=== PATIENT | male | born 1980 | race Caucasian/White ===

== ENCOUNTER 2016-09-08 16:03 | Inpatient (IN) | payer BC ==
[~2016-09-08] VITALS: Ht 185.4 cm; Wt 124.1 kg
[~2016-09-08 16:03] MED LIST: ALPR.25 PO; CITA20TA4 PO; CLON1TAB PO; NAPR500 PO; SUMA50TA2 PO; TRAZ50TA12 PO
[2016-09-08 16:04] VITALS: BP 157/100; PULSE 67; RESP 20; TEMP 98.2; O2SAT 100
--- NOTE | 2016-09-08 17:49 | PD ---
HPI Chief Complaint: Neuro Symptoms/ Deficits Time Seen by Provider: 17:49 Travel History International Travel<30 days: No Contact w/Intl Traveler<30days: No Traveled to known affect area: No History of Present Illness HPI 35-year-old male with history of MS, diagnosed 10 years ago, followed by Dr. Pichardo presents to the emergency department for evaluation of MS exacerbation. Patient states he has been having left-sided weakness, facial droop, and drooling since yesterday. Patient states this is typical of his MS flare. He has also had a severe headache. He has had no other focal deficits or weakness. Was advised to come to the emergency department by his neurologist. He has no recent illnesses, fever, or chills. No nausea or vomiting. No other symptoms to report. PFSH Past Medical History Arthritis: No Asthma: No Autoimmune Disease: No Blood Disorders: No Anxiety: Yes (ANXIETY TIED INTO MS) Depression: No Heart Rhythm Problems: No Cancer: Yes (TESTICULAR/MONITORING NO CHEMO OR RADIATION) Cardiovascular Problems: No High Cholesterol: No Chemotherapy: No Chest Pain: No Congestive Heart Failure: No COPD: No Cerebrovascular Accident: No Diabetes: No Diminished Hearing: No Endocrine: No GERD: No Genitourinary: No Headaches: Yes Hiatal Hernia: No Immune Disorder: No Implanted Vascular Access Dvce: No Kidney Stones: No Musculoskeletal: Yes (MS) Neurologic: Yes (MS) Psychiatric: Yes Reproductive: Yes (ORCHIECTOMY) Respiratory: No (PNEUMONIA AND CROUP CHILD) Migraines: Yes Radiation Therapy: No Renal Failure: No Seizures: No Sickle Cell Disease: No Sleep Apnea: No Thyroid Disease: No Ulcer: No PNEUMOCCOCAL Vaccine (Year): 2 Past Surgical History Abdominal Surgery: No AICD: No Arteriovenous Shunt: No Cardiac Surgery: No Ear Surgery: No Endocrine Surgery: No Eye Surgery: No Genitourinary Surgery: No Gynecologic Surgery: No Insulin Pump: No Joint Replacement: No Oral Surgery: No Pacemaker: No Thoracic Surgery: No Other Surgery: No Social History Alcohol Use: No (PT DENIES) Tobacco Use: No (PT DENIES) Substance Use: No Allergies-Medications (Allergen,Severity, Reaction): Coded Allergies: Erythromycin (Verified Allergy, Severe, VOMIT, 09/08/16) Lortab (Verified Allergy, Severe, Nausea/Vomiting, 09/08/16) Penicillin (Verified Allergy, Severe, vomiting, 09/08/16) Amoxicillin (Verified Adverse Reaction, Severe, Nausea/Vomiting, 09/08/16) Reported Meds & Prescriptions Reported Meds & Active Scripts Active Xanax (Alprazolam) 0.25 Mg Tab 0.25 Mg PO Q8H Citalopram (Citalopram Hydrobromide) 20 Mg Tab 20 Mg PO DAILY Clonazepam 1 Mg Tab 1 Mg PO BID Sumatriptan (Sumatriptan Succinate) 50 Mg Tab 50 Mg PO DAILY PRN If a satisfactory response has not been obtained at 2 hours, a second dose may be administered Naprosyn (Naproxen) 500 Mg Tab 500 Mg PO Q12HR PRN Reported Trazodone (Trazodone HCl) 50 Mg Tab 50 Mg PO HS Review of Systems Except as stated in HPI: all other systems reviewed are Neg Physical Exam Narrative GENERAL: Well-nourished male patient, in no acute distress SKIN: Warm and dry. HEAD: Atraumatic. Normocephalic. Left-sided facial paralysis noted most with smile. EYES: Pupils equal and round. No scleral icterus. No injection or drainage. ENT: No nasal bleeding or discharge. Mucous membranes pink and moist. NECK: Trachea midline. No JVD. CARDIOVASCULAR: Regular rate and rhythm. No murmur appreciated. RESPIRATORY: No accessory muscle use. Clear to auscultation. Breath sounds equal bilaterally. GASTROINTESTINAL: Abdomen soft, non-tender, nondistended. Hepatic and splenic margins not palpable. MUSCULOSKELETAL: No obvious deformities. No clubbing. No cyanosis. No edema. NEUROLOGICAL: Awake and alert. Patient has 3 out of 5 left sided strength upper and lower extremity. 5 out of 5 right upper and lower extremity. PSYCHIATRIC: Appropriate mood and affect; insight and judgment normal. Data Data Last Documented VS Vital Signs Date Time Temp Pulse Resp B/P Pulse Ox O2 Delivery O2 Flow Rate FiO2 09/08/16 16:04 98.2 67 20 157/[address] Brain W/O Iv Contrast(Rout) (09/08/16 ) Complete Blood Count With Diff (09/08/16 17:53) Basic Metabolic Panel (Bmp) (09/08/16 17:53) Coag Profile (09/08/16 17:53) Labs Laboratory Tests Test 09/08/16 18:15 White Blood Count 8.0 TH/MM3 Red Blood Count 4.97 MIL/MM3 Hemoglobin 14.4 GM/DL Hematocrit 42.4 % Mean Corpuscular Volume 85.4 FL Mean Corpuscular Hemoglobin 28.9 PG Mean Corpuscular Hemoglobin 33.9 % Concent Red Cell Distribution Width 13.0 % Platelet Count 188 TH/MM3 Mean Platelet Volume 8.1 FL Neutrophils (%) (Auto) 62.3 % Lymphocytes (%) (Auto) 29.4 % Monocytes (%) (Auto) 6.4 % Eosinophils (%) (Auto) 1.3 % Basophils (%) (Auto) 0.6 % Neutrophils # (Auto) 5.0 TH/MM3 Lymphocytes # (Auto) 2.4 TH/MM3 Monocytes # (Auto) 0.5 TH/MM3 Eosinophils # (Auto) 0.1 TH/MM3 Basophils # (Auto) 0.0 TH/MM3 CBC Comment DIFF FINAL Differential Comment Prothrombin Time 10.9 SEC Prothromb Time International 1.0 RATIO Ratio Activated Partial 29.9 SEC Thromboplast Time Sodium Level 140 MEQ/L Potassium Level 3.5 MEQ/L Chloride Level 105 MEQ/L Carbon Dioxide Level 28.2 MEQ/L Anion Gap 7 MEQ/L Blood Urea Nitrogen 11 MG/DL Creatinine 0.91 MG/DL Estimat Glomerular Filtration 95 ML/MIN Rate Random Glucose 74 MG/DL Calcium Level 8.4 MG/DL [facility] Medical Decision Making Medical Screen Exam Complete: Yes Emergency Medical Condition: Yes Medical Record Reviewed: Yes Differential Diagnosis MS exacerbation versus electrolyte abnormality versus intracranial hemorrhage versus mass Narrative Course 35-year-old male presents to the emergency department for evaluation. Workup initiated in triage. Once a medical bed becomes available, patient will be transferred and care assumed by that provider. Condition: Stable VaishaliJuan CEvonnekev DUMONT Sep 08, 2016 17:49
[2016-09-08 18:49] LABS: BASOPHIL % 0.6 % (0.0-2.0); EOSINOPHIL # 0.1 TH/MM3 (0-0.4); EOSINOPHIL % 1.3 % (0.0-4.0); HEMATOCRIT 42.4 % (39.0-51.0); HEMO FLAGS DIFF FINAL; LYMPH % 29.4 % (9.0-44.0); LYMPHOCYTE # 2.4 TH/MM3 (1.0-4.8); MEAN CELL VOLUME 85.4 FL (80.0-100.0); MEAN CORPUSCULAR HEMOGLOBIN 28.9 PG (27.0-34.0); MEAN CORPUSCULAR HGB CONC 33.9 % (32.0-36.0); MONO % 6.4 % (0.0-8.0); NEUT % 62.3 % (16.0-70.0); PLATELET COUNT 188 TH/MM3 (150-450); RED BLOOD COUNT 4.97 MIL/MM3 (4.50-5.90)
[2016-09-08 18:59] LABS: APTT (PATIENT) 29.9 SEC (24.3-30.1); PROTHROMBIN TIME - PATIENT 10.9 SEC (9.8-11.6)
--- NOTE | 2016-09-08 19:05 | RADRPT ---
EXAM DATE/TIME: 09/08/2016 18:39 [facility] COMPARISON: MRI BRAIN W & W/O CONTRAST, May 06, 2016, 14:11. CT BRAIN W/O CONTRAST, May 05, 2016, 12:43 . INDICATIONS : Left weakness and slurred speech X 2 days. RADIATION DOSE: 43.75 CTDIvol (mGy) MEDICAL HISTORY : Multple sclerosis. SURGICAL HISTORY : None. ENCOUNTER: Initial ACUITY: 2 days PAIN SCALE: 0/10 LOCATION: chest TECHNIQUE: Multiple contiguous axial images were obtained of the head. Using automated exposure control and adj ustment of the mA and/or kV according to patient size, radiation dose was kept as low as reasonably a chievable to obtain optimal diagnostic quality images. FINDINGS: CEREBRUM: A small focal hypodensity is again identified in the right centrum semiovale along the roof of the la teral ventricle. Overall appearance the brain is stable. There are no new areas of hypodensity. There is no evidence of mass effect or edema. POSTERIOR FOSSA: The cerebellum and brainstem are intact. The 4th ventricle is midline. The cerebellopontine angle i s unremarkable. EXTRACRANIAL: The visualized portion of the orbits is intact. SKULL: The calvaria is intact. No evidence of skull fracture. CONCLUSION: Persistent stable hypodensity in the right centrum semiovale. No evidence of acute infarct, hemorrhage, mass or edema. Luke Andujar MD on September 08, 2016 at 19:00 Board Certified Radiologist. This report was verified electronically.
[2016-09-08 19:12] LABS: BICARBONATE 28.2 MEQ/L (21.0-32.0); POTASSIUM 3.5 MEQ/L (3.5-5.1)
[2016-09-08] MEDS ORDERED: TERI14TA PO (20:07)
[2016-09-08] MEDS ORDERED: methylPREDNISolone SO SUCC INJ 500 MG in DEXTROSE 5% IN WATER 100ML INJ 100 ML IV ONE ×2 (20:15)
[2016-09-08] MEDS ORDERED: LORazepam 2 MG/ML VIAL IV PUSH ONE (20:30)
--- NOTE | 2016-09-08 20:43 | PD ---
Physical Exam Date Seen by Provider: Sep 08, 2016 Time Seen by Provider: 20:40 Narrative 35-year-old male that presents to the ED for evaluation of her MS flare. Please refer to previous providers note. Patient was signed out to me by Evonne farias. Data Data Last Documented VS Vital Signs Date Time Temp Pulse Resp B/P Pulse Ox O2 Delivery O2 Flow Rate FiO2 09/08/16 16:04 98.2 67 20 157/[address] Brain W/O Iv Contrast(Rout) (09/08/16 ) Complete Blood Count With Diff (09/08/16 17:53) Basic Metabolic Panel (Bmp) (09/08/16 17:53) Coag Profile (09/08/16 17:53) Methylprednisolone So Succ Inj (Solumedr (09/08/16 20:15) Lorazepam Inj (Ativan Inj) (09/08/16 20:30) Admit Order (Ed Use Only) (09/08/16 20:40) Labs Laboratory Tests Test 09/08/16 18:15 White Blood Count 8.0 TH/MM3 Red Blood Count 4.97 MIL/MM3 Hemoglobin 14.4 GM/DL Hematocrit 42.4 % Mean Corpuscular Volume 85.4 FL Mean Corpuscular Hemoglobin 28.9 PG Mean Corpuscular Hemoglobin 33.9 % Concent Red Cell Distribution Width 13.0 % Platelet Count 188 TH/MM3 Mean Platelet Volume 8.1 FL Neutrophils (%) (Auto) 62.3 % Lymphocytes (%) (Auto) 29.4 % Monocytes (%) (Auto) 6.4 % Eosinophils (%) (Auto) 1.3 % Basophils (%) (Auto) 0.6 % Neutrophils # (Auto) 5.0 TH/MM3 Lymphocytes # (Auto) 2.4 TH/MM3 Monocytes # (Auto) 0.5 TH/MM3 Eosinophils # (Auto) 0.1 TH/MM3 Basophils # (Auto) 0.0 TH/MM3 CBC Comment DIFF FINAL Differential Comment Prothrombin Time 10.9 SEC Prothromb Time International 1.0 RATIO Ratio Activated Partial 29.9 SEC Thromboplast Time Sodium Level 140 MEQ/L Potassium Level 3.5 MEQ/L Chloride Level 105 MEQ/L Carbon Dioxide Level 28.2 MEQ/L Anion Gap 7 MEQ/L Blood Urea Nitrogen 11 MG/DL Creatinine 0.91 MG/DL Estimat Glomerular Filtration 95 ML/MIN Rate Random Glucose 74 MG/DL Calcium Level 8.4 MG/DL [facility] Medical Record Reviewed: Yes Supervised Visit with SIXTO: No Interpretation(s) Last Impressions Head CT 09/08/16 0000 Signed Impressions: Service Date/Time: Thursday, September 08, 2016 18:39 - CONCLUSION: Persistent stable hypodensity in the right centrum semiovale. No evidence of acute infarct, hemorrhage, mass or edema. Luke Andujar MD CBC & BMP Diagram 09/08/16 18:15 Differential Diagnosis MS flare versus anxiety versus stroke Narrative Course 35-year-old male that presents to the ED for evaluation of MS flare. Please refer to prior as providers note. I was asked to disposition patient pending labs and imaging reports. Labs and imaging were essentially unremarkable. Patient appears to have an MS flare from my examination. Case was discussed with Dr. Smith who is on-call for Dr. Covarrubias who agrees to admission to medicine, started on Solu-Medrol 500 mg IV twice a day, he wants an MRI of the head as well as CT of the cervical spine done by tomorrow. Case was discussed with Dr. Hamtpon who agrees to admission to the residence. This was discussed with the patient himself agrees to admission. Diagnosis Primary Impression: Multiple sclerosis Admitting Information Admitting Physician Requests: Admit Condition: Stable Cleve De Jesus Sep 08, 2016 20:42
[2016-09-08] MEDS ORDERED: SODIUM CHLORIDE 0.9% FLUSH 5 ML FLUSH FLUSH PRN (22:00)
[2016-09-08] MEDS ORDERED: NALOXONE HCL 0.4 MG/ML AMP IV PRN (22:00)
[2016-09-08] MEDS ORDERED: ONDANSETRON HCL 4 MG/2 ML VIAL IVP PRN (22:00)
[2016-09-08] MEDS ORDERED: ACETAMINOPHEN 325 MG TAB PO PRN (22:00)
--- NOTE | 2016-09-08 22:08 | HHI.HP ---
[facility] Service Family Medicine Primary Care Physician Niranjan Tavarez D, MD Admission Diagnosis MS flare Diagnoses: International Travel<30 Days: No Contact w/Intl Traveler<30days: No Known Affected Area: No History of Present Illness 35 year old male with PMH of MS diagnosed in 2006 presents to ED for evaluation of MS exacerbation. He states he has been having left-sided facial droop, drooling, and left-sided arm and leg weakness. He states this is a typical flare -up of MS for him. He has had these same symptoms in the past and recently admitted here at [place] in 05/2016. He states he has had a headache that is about a 5/10 for the past week and a half, not in any particular area, not associated with photophobia or phonophobia. Denies N/V. His left-sided weakness started to worsen this past Sunday requiring him to hold onto the brooke due to an unsteady gait. He states he is still able to bear weight on his left leg. His strength has slightly improved since several days ago. His speech is slightly slurred. He denies any other focal neurological deficit. Denies dysphagia. Denies any recent illnesses, fevers, chest pain, shortness of breath , no visual symptoms. He follows with Dr. Newby. Review of Systems Constitutional: DENIES: Fever, Dizziness, Change in appetite Eyes: DENIES: Blurred vision, Diplopia, Double Vision Ears, nose, mouth, throat: DENIES: Throat pain, Hoarseness Respiratory: DENIES: Cough, Sputum production, Shortness of breath Cardiovascular: DENIES: Chest pain, Palpitations, Lower Extremity Edema Gastrointestinal: COMPLAINS OF: Diarrhea (States having diarrhea has been normal after starting on Aubagio), DENIES: Abdominal pain, Black stools, Bloody stools, Constipation, Nausea, Vomiting Genitourinary: DENIES: Hematuria, Dysuria Integumentary: DENIES: Rash Neurologic: COMPLAINS OF: Abnormal gait, Headache, Localized weakness, Speech Problems Past Family Social History Past Medical History MS 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 Past Surgical History Orchiectomy for testicular cancer Reported Medications Reported Meds & Active Scripts Active Reported Aubagio (Teriflunomide) 14 Mg Tab 14 Mg PO DAILY Allergies: Coded Allergies: Erythromycin (Verified Allergy, Severe, VOMIT, 09/08/16) Lortab (Verified Allergy, Severe, Nausea/Vomiting, 09/08/16) Penicillin (Verified Allergy, Severe, vomiting, 09/08/16) Amoxicillin (Verified Adverse Reaction, Severe, Nausea/Vomiting, 09/08/16) Family History Father: ANGELIKA, age 56 Mother: healthy, age 63 Social History Lives in [place] with roommate Works at [employer] 1[employer]D x 16 years, quit x 2 years THC use No alcohol use Physical Exam Vital Signs Vital Signs Date Time Temp Pulse Resp B/P Pulse Ox O2 Delivery O2 Flow Rate FiO2 09/08/16 16:04 98.2 67 20 157/100 100 Room Air Physical Exam GENERAL: NAD, resting comfortably in bed NEURO: AOx3. Speech slightly slurred. dam operator II-XII intact. No facial droop. Strength is 5/5 throughout. Sensation intact throughout. Reflexes 2+. Finger-to- nose testing normal. Gait not tested. SKIN: Warm and dry. No rashes or erythema. HEAD: Normocephalic. Atraumatic. EYES: PERRL. EOMI. No scleral icterus. No injection or drainage. ENT: No nasal drainage. Moist mucous membranes. No oral ulcers or lesions. NECK: Supple, trachea midline. No JVD or lymphadenopathy. CARDIOVASCULAR: Regular rate and rhythm without murmurs, rubs, or gallops. Peripheral pulses 2+. Capillary refill < 2 seconds. RESPIRATORY: Breath sounds clear to auscultation and equal bilaterally, without wheezes, rales, or rhonchi. No accessory muscle use. GASTROINTESTINAL: Abdomen soft, nontender, nondistended, normal BS. No organomegaly or masses. No rebound tenderness. No guarding. MUSCULOSKELETAL: No edema, cyanosis, or clubbing. Normal range of motion. 5/5 strength throughout. BACK: Nontender without obvious deformity. Laboratory Laboratory Tests Test 09/08/16 18:15 White Blood Count 8.0 Red Blood Count 4.97 Hemoglobin 14.4 Hematocrit 42.4 Mean Corpuscular Volume 85.4 Mean Corpuscular Hemoglobin 28.9 Mean Corpuscular Hemoglobin 33.9 Concent Red Cell Distribution Width 13.0 Platelet Count 188 Mean Platelet Volume 8.1 Neutrophils (%) (Auto) 62.3 Lymphocytes (%) (Auto) 29.4 Monocytes (%) (Auto) 6.4 Eosinophils (%) (Auto) 1.3 Basophils (%) (Auto) 0.6 Neutrophils # (Auto) 5.0 Lymphocytes # (Auto) 2.4 Monocytes # (Auto) 0.5 Eosinophils # (Auto) 0.1 Basophils # (Auto) 0.0 CBC Comment DIFF FINAL Differential Comment Prothrombin Time 10.9 Prothromb Time International 1.0 Ratio Activated Partial 29.9 Thromboplast Time Sodium Level 140 Potassium Level 3.5 Chloride Level 105 Carbon Dioxide Level 28.2 Anion Gap 7 Blood Urea Nitrogen 11 Creatinine 0.91 Estimat Glomerular Filtration 95 Rate Random Glucose 74 Calcium Level 8.4 Result Diagram: 09/08/16181409/08/16 181 Imaging Last [address] 09/08/16 0000 Signed Impressions: Service Date/Time: Thursday, September 08, 2016 18:39 - CONCLUSION: Persistent stable hypodensity in the right centrum semiovale. No evidence of acute infarct, hemorrhage, mass or edema. Luke Andujar MD Cervical Spine CT 09/08/16 0000 Signed Impressions: Service Date/Time: Thursday, September 08, 2016 22:10 - CONCLUSION: Normal examination. Luke Andujar MD Septic Shock Reassessment Heart: Regular rate and rhythm Lungs: Clear Skin: Warm, Dry Peripheral Pulses: Bounding Right Radial Bounding Left Radial Bounding Right Dorsalis Pedis Bounding Left Dorsalis Pedis Bounding Right Posterior Tibial Bounding Left Posterior Tibial Capillary Refill: <2 seconds Assessment and Plan Assessment and Plan 35 year old male with PMH of MS diagnosed in 2006 presented to ED due to report of left-sided facial droop that seems to have resolved, drooling, left-sided arm and leg weakness. He will be admitted and managed for the following: Code Status Full code Discussed Condition With Dr. Nichols Problem List: (1) Multiple sclerosis Status: Acute Plan: - Given history of MS his symptoms are likely due to a relapse of MS - Head CT shows a persistent stable hypodensity in the right centrum semiovale; no evidence for acute infarct, hemorrhage, mass, or edema - C-spine CT normal - MRI brain with and without contrast ordered - Given 500 mg Solumedrol IV in ED - Continue Solumedrol 500 mg IV BID for a total of three days - Protonix 40 mg po daily for GI prophylaxis - Continue Aubagio - Neuro checks q4h - PT/OT/ST - OOB with assistance - Consult neurology, appreciate recommendations (2) Headache Status: Acute Plan: He does have a history of headaches which may be trigeminal neuralgia versus migraine. No photophobia or phonophobia, no significant eye pain - Will give Sumatriptan as he states he has had a good response with this in the past (3) Nutrition, metabolism, and development symptoms Status: Acute Plan: No fluids Electrolytes WNLs Regular diet Trazodone prn insomnia (4) DVT prophylaxis Status: Acute Plan: Lovenox 40 mg subq daily Physician Certification 2 Midnight Certification Type: Admission for Inpatient Services Order for Inpatient Services The services are ordered in accordance with Medicare regulations or non- Medicare payer requirements, as applicable. In the case of services not specified as inpatient-only, they are appropriately provided as inpatient services in accordance with the 2-midnight benchmark. Estimated LOS (days): 2 days is the estimated time the patient will need to remain in the hospital, assuming treatment plan goals are met and no additional complications. Post-Hospital Plan: Home Rashawn Chacon MD R1 Sep 08, 2016 22:08
--- NOTE | 2016-09-08 22:29 | RADRPT ---
EXAM DATE/TIME: 09/08/2016 22:10 [facility] COMPARISON: No previous studies available for comparison. INDICATIONS : Left sided weakness. RADIATION DOSE: 33.69 CTDIvol (mGy) MEDICAL HISTORY : Multple sclerosis. SURGICAL HISTORY : None. ENCOUNTER: Initial ACUITY: 2 days PAIN SCALE: 0/10 LOCATION: neck TECHNIQUE: Volumetric scanning of the cervical spine was performed. Multiplanar reconstructions in the sagittal, coronal and oblique axial planes were performed. Using automated exposure control and adjustment o f the mA and/or kV according to patient size, radiation dose was kept as low as reasonably achievable to obtain optimal diagnostic quality images. FINDINGS: VERTEBRAE: Normal vertebral body height. ALIGNMENT: No evidence of subluxation. C2-C3: The bony spinal canal is normal in size. No evidence of disc bulge or herniation. The neural forami na are bilaterally patent. C3-C4: The bony spinal canal is normal in size. No evidence of disc bulge or herniation. The neural forami na are bilaterally patent. C4-C5: The bony spinal canal is normal in size. No evidence of disc bulge or herniation. The neural forami na are bilaterally patent. C5-C6: The bony spinal canal is normal in size. No evidence of disc bulge or herniation. The neural forami na are bilaterally patent. C6-C7: The bony spinal canal is normal in size. No evidence of disc bulge or herniation. The neural forami na are bilaterally patent. C7-T1: The bony spinal canal is normal in size. No evidence of disc bulge or herniation. The neural forami na are bilaterally patent. CONCLUSION: Normal examination. Luke Andujar MD on September 08, 2016 at 22:25 Board Certified Radiologist. This report was verified electronically.
[2016-09-08 22:40] VITALS: BP 139/88; PULSE 61; RESP 18; O2SAT 98
[2016-09-08] MEDS: SODIUM CHLORIDE 0.9% FLUSH 5 ML FLUSH FLUSH SCH (22:41)
[2016-09-08] MEDS: ENOXAPARIN SODIUM 40 MG/0.4 ML SYRINGE SQ SCH (22:54)
[2016-09-08] MEDS: PANTOPRAZOLE SOD 40 MG DELAYED RELEASE TAB PO SCH (23:27)
[2016-09-08 23:52] VITALS: BP 151/87; PULSE 71; RESP 20; TEMP 96.2; O2SAT 97
[2016-09-09] MEDS: SUMAtriptan SUCCINATE 50 MG TAB PO PRN ×3 (00:05→22:29)
[2016-09-09] MEDS ORDERED: ENALAPRILAT 1.25 MG/ML VIAL IV PRN (01:30)
[2016-09-09 04:00] VITALS: BP 130/73; PULSE 68; RESP 18; TEMP 96.5; O2SAT 98
[2016-09-09 07:21] LABS: BASOPHIL % 0.2 % (0.0-2.0); EOSINOPHIL % 0.1 % (0.0-4.0); HEMO FLAGS DIFF FINAL; LYMPH % 15.7 % (9.0-44.0); LYMPHOCYTE # 0.8 TH/MM3 (1.0-4.8); MEAN CELL VOLUME 84.5 FL (80.0-100.0); MEAN CORPUSCULAR HEMOGLOBIN 29.1 PG (27.0-34.0); MEAN CORPUSCULAR HGB CONC 34.4 % (32.0-36.0); MONO % 1.4 % (0.0-8.0); NEUT % 82.6 % (16.0-70.0); PLATELET COUNT 186 TH/MM3 (150-450); RED BLOOD COUNT 5.21 MIL/MM3 (4.50-5.90); RED CELL DISTRIBUTION WIDTH 12.8 % (11.6-17.2); WHITE BLOOD COUNT 4.8 TH/MM3 (4.0-11.0)
[2016-09-09 07:34] LABS: BICARBONATE 25.9 MEQ/L (21.0-32.0)
--- NOTE | 2016-09-09 07:34 | HHI.FPPN ---
Subjective Remarks Patient seen and examined this morning. AFVSS. No acute events overnight. Reports continued weakness and decreased sensation in LLE and LUE, worse in upper extremity. Also states he still has mild drooping of left mouth. No significant improvement after first dose of IV steroids. Right-sided headache improved with Imitrex. Denies blurry or double vision, chest pain, or shortness of breath. Tolerating PO. Ambulating to the restroom without issues. (Nikky Pleitez MD) Objective Vitals Vital Signs Date Time Temp Pulse Resp B/P Pulse Ox O2 Delivery O2 Flow Rate FiO2 09/09/16 04:00 96.5 68 18 130/73 98 09/09/16 00:10 Room Air 09/08/16 23:52 96.2 71 20 151/87 97 09/08/16 22:40 61 18 139/88 98 Room Air 09/08/16 16:04 98.2 67 20 157/100 100 Room Air I/O 09/08/16 09/08/16 09/08/16 09/09/16 09/09/16 09/09/16 07:00 15:00 23:00 07:00 15:00 23:00 Intake Total 240 ml Balance 240 ml Intake Oral 240 ml # Voids 1 # Bowel Movements 0 (Nikky Pleitez MD) Result Diagram: 09/09/16 0625 09/08/[address] 09/08/16 0000 Signed Impressions: Service Date/Time: Thursday, September 08, 2016 18:39 - CONCLUSION: Persistent stable hypodensity in the right centrum semiovale. No evidence of acute infarct, hemorrhage, mass or edema. Luke Andujar MD Cervical Spine CT 09/08/16 0000 Signed Impressions: Service Date/Time: Thursday, September 08, 2016 22:10 - CONCLUSION: Normal examination. Luke Andujar MD Objective Remarks GENERAL: WN, WD male sitting up comfortably in bed, pleasant and cooperative, in NAD. SKIN: Warm and dry. HEENT: PERRLA. EOMI. MMM. HEART: RRR no m/r/g. LUNGS: CTAB without wheezes or crackles. ABDOMEN: Soft, NT, ND. EXTREMITIES: No LE edema. NEURO: Awake and alert. Normal speech. Very slight left mouth droop otherwise CN II-XII intact. UE and LE strength 5/5 but LLE/LUE less in comparison to the right side. Diminished sensation over LLE and LUE. Sensation of face intact. PSYCH: Appropriate mood and affect. (Nikky Pleitez MD) A/P Assessment and Plan 35 year old male with multiple sclerosis is admitted for MS flare. Patient follows with Dr. Newby who has been consulted. The plan is for three days of IV steroids. PT/OT consulted. Discharge Planning Anticipate discharge after three full days of IV steroids BID. (Nikky Pleitez MD) Attending Attestation Patient seen and examined. Case reviewed and discussed with the resident team. Agree with plan of care as discussed with me and documented in the resident note. he requested 2 mg of ativan prior to his iv steroids as they are very high dose and give him anxiety. He had 2 mg earlier and is not sedated as he is more than 6 feet tall and can tolerate this dose. stopped other ativan doses as he wishes to focus on the steroids is stable otherwise. (Karly Geller MD) Problem List: (1) Multiple sclerosis Status: Acute Plan: Patient admitted for acute flare of MS. Head CT shows a persistent stable hypodensity in the right centrum semiovale and CT of C-spine normal. - Neuro consulted; appreciate recommendations - Solumedrol 500 mg IV BID for a total of three days (first dose given evening of 3. Course to be complete on 3/6 after AM dose) - Continue home Aubagio (patient has it with him) - Neuro checks - PT/OT/ST (2) Headache Status: Chronic Plan: Patient with history of headaches and success with Imitrex. - CT head with no acute process - Imitrex and Tylenol PRN (3) Anxiety Status: Acute Plan: On review of EMR, patient's PCP had changed home Xanax to Klonopin 1 mg BID PRN which can be continued. - Continue home Trazodone (4) Nutrition, metabolism, and development symptoms Status: Acute Plan: - Fluids: Tolerating PO - Electrolytes: WNL - Nutrition: Regular diet - DVT prophylaxis: Lovenox 40 mg SQ daily - GI prophylaxis: Protonix 40 mg daily since receiving high-dose steroids dw Dr. Geller (Nikky Pleitez MD) Nikky Pleitez MD Sep 09, 2016 07:33 Karly Geller MD Sep 09, 2016 17:18
[2016-09-09 07:44] VITALS: BP 139/92; PULSE 73; RESP 17; TEMP 96.8; O2SAT 96
[2016-09-09] MEDS ORDERED: clonazePAM 1 MG TAB PO PRN (08:45)
[2016-09-09] MEDS ORDERED: TERIFLUNOMIDE 14 MG PO SCH (09:00)
[2016-09-09] MEDS: PANTOPRAZOLE SOD 40 MG DELAYED RELEASE TAB PO SCH (09:00)
[2016-09-09] MEDS: methylPREDNISolone SO SUCC INJ 500 MG in DEXTROSE 5% IN WATER 100ML INJ 100 ML IV SCH ×4 (09:48→22:49)
[2016-09-09] MEDS ORDERED: GADODIAMIDE PF 287 MG/ML 20 ML VIAL (for RAD MRI) IV ONE (11:00)
--- NOTE | 2016-09-09 11:17 | RADRPT ---
EXAM DATE/TIME: 09/09/2016 10:15 [place] COMPARISON: CT BRAIN W/O CONTRAST, September 08, 2016, 18:39. MRI BRAIN W & W/O CONTRAST, May 06, 2016, 14:11. INDICATIONS : Left side weakness, history of MS. CONTRAST: 20 cc Omniscan (gadodiamide) IV MEDICAL HISTORY : Multiple sclerosis. SURGICAL HISTORY : None applicable. ENCOUNTER: Initial ACUITY: 1 day PAIN SCORE: 0/10 LOCATION: cranial TECHNIQUE: Multiplanar, multisequence MRI of the brain was performed both prior to and following the administrat ion of paramagnetic contrast. FINDINGS: CEREBRUM: The ventricles are normal in size. No evidence of midline shift, mass lesion, hemorrhage or acute in farction. No extraaxial fluid collections are seen. The pituitary gland and suprasellar cistern are normal in configuration. WHITE MATTER: There are stable periventricular areas of increased flair and T2 signal. POSTERIOR FOSSA: The cerebellum and brainstem demonstrate no acute finding. The 4th ventricle is midline. The cerebel lopontine angle is unremarkable. The cerebellar tonsils are normal in position. DIFFUSION IMAGING: No focal areas of restricted diffusion are seen. No evidence of acute infarction. EXTRACRANIAL: The visualized portions of the orbits and paranasal sinuses are unremarkable. POST-CONTRAST: No abnormal areas of parenchymal or dural enhancement. No evidence of blood-brain barrier breakdown. CONCLUSION: Stable brain MRI. There are stable periventricular and subcortical areas of white matter signal evangelista e which may be related to the patient's known multiple sclerosis. No acute finding is identified. Emigdio Pretty MD on September 09, 2016 at 11:12 Board Certified Radiologist. This report was verified electronically.
[2016-09-09 11:45] VITALS: BP 156/77; PULSE 71; RESP 17; TEMP 97.4; O2SAT 98
[2016-09-09] MEDS ORDERED: LORazepam 1 MG TAB PO PRN (12:45)
[2016-09-09] MEDS ORDERED: LORazepam 2 MG/ML VIAL IV PUSH ONE (15:30)
[2016-09-09 15:45] VITALS: BP 160/89; PULSE 82; RESP 17; TEMP 97.5; O2SAT 97
[2016-09-09] MEDS ORDERED: MAGNESIUM HYDROXIDE SUSP 30 ML CUP PO PRN (17:30)
[2016-09-09] MEDS: SODIUM CHLORIDE 0.9% FLUSH 5 ML FLUSH FLUSH SCH ×2 (18:22→22:31)
--- NOTE | 2016-09-09 18:52 | MB ---
cc: NAEEM W[place] DATE OF CONSULTATION 09/09/16 REASON FOR CONSULTATION Multiple sclerosis HISTORY OF PRESENT ILLNESS Mr. Douglas is a very nice 35-year-old male who has a history of multiple sclerosis since the year 1999. He is currently on . He presents now with several day history of worsening left-sided weakness due to MS. PAST MEDICAL HISTORY History of MS testicular cancer seminoma, orchiectomy for that MEDICATIONS At home 1. ___14 mg daily. ALLERGIES PENICILLIN AMOXICILLIN ERYTHROMYCIN LORTAB. NEUROLOGIC EXAMINATION Blood pressure is 160/89, pulse is 82, respirations 17, temperature 97.5 degrees. Higher cortical functions are normal. Cranial nerves intact. Motor exam - he has moderate weakness left arm and left leg rated at 4/5 with 5/5 strength in the right. IMAGING STUDIES MRI of the brain shows multiple sclerosis plaques which appear to be stable. CT of cervical spine no fracture. LABORATORY DATA White count 8000, hemoglobin 14.4, hematocrit of 42%. IMPRESSION Multiple sclerosis exacerbation. PLAN IV Solu-Medrol 500 mg IV b.i.d. for a total of 3-5 days depending on his responsiveness. MD MARIMAR Santoyo/ /6:25 PM /6:40 PM
[2016-09-09 20:14] VITALS: BP 140/83; PULSE 94; RESP 21; TEMP 97.9; O2SAT 98
[2016-09-09] MEDS ORDERED: LORazepam 2 MG/ML VIAL IV PUSH SCH (21:00)
[2016-09-09] MEDS: ENOXAPARIN SODIUM 40 MG/0.4 ML SYRINGE SQ SCH (22:31)
[2016-09-09] MEDS: LORazepam 2 MG/ML VIAL IV PUSH SCH (22:31)
[2016-09-10 00:11] VITALS: BP 134/84; PULSE 86; RESP 22; TEMP 96.9; O2SAT 97
[2016-09-10 08:22] VITALS: BP 136/85; PULSE 91; RESP 18; TEMP 96.1; O2SAT 98
[2016-09-10] MEDS: PANTOPRAZOLE SOD 40 MG DELAYED RELEASE TAB PO SCH (09:00)
[2016-09-10] MEDS: SODIUM CHLORIDE 0.9% FLUSH 5 ML FLUSH FLUSH SCH ×2 (10:09→21:12)
[2016-09-10] MEDS: methylPREDNISolone SO SUCC INJ 500 MG in DEXTROSE 5% IN WATER 100ML INJ 100 ML IV SCH ×4 (10:10→21:11)
[2016-09-10] MEDS: LORazepam 2 MG/ML VIAL IV PUSH SCH ×2 (10:10→21:11)
[2016-09-10] MEDS: SUMAtriptan SUCCINATE 50 MG TAB PO PRN (10:15)
--- NOTE | 2016-09-10 10:20 | HHI.FPPN ---
Subjective Remarks Mr Douglas is doing a little better today with his numbness on the left for his foot and hand. He cannot feel the floor with his left foot when he walks and has some chronic problems with balance as well. He does note that after his third dose of steroids, he is improving. It is discouraging for him to be on a new and good medicine for 3 months and yet have an exacerbation but we discussed that the meds were not perfect at preventing everything but did decrease frequency and severity of problems in general. I also discussed that there were so many new and ever improving meds so that hopefully he could find even better meds in the future to prevent problems. He complains of headache which usually accompanies his MS flares. We discussed many different meds for headaches and none have worked very well. He has a reported allergy to lortab with nausea and vomiting so will try toradol as that helped him per his record in the past with headaches. Objective Vitals Vital Signs Date Time Temp Pulse Resp B/P Pulse Ox O2 Delivery O2 Flow Rate FiO2 09/10/16 00:11 96.9 86 22 134/84 97 09/09/16 20:14 97.9 94 21 140/83 98 09/09/16 15:45 97.5 82 17 160/89 97 09/09/16 11:45 97.4 71 17 156/77 98 I/O 09/09/16 09/09/16 09/09/16 09/10/16 09/10/16 09/10/16 07:00 15:00 23:00 07:00 15:00 23:00 Intake Total 240 ml 960 ml 720 ml 480 ml Balance 240 ml 960 ml 720 ml 480 ml Intake Oral 240 ml 960 ml 720 ml 480 ml # Voids 1 3 3 2 # Bowel Movements 0 1 0 0 Result Diagram: 09/09/1625 09/09/16624 Objective Remarks GENERAL: WN, WD male sitting up comfortably in bed, pleasant and cooperative, in NAD. SKIN: Warm and dry. HEENT: PERRLA. EOMI. MMM. HEART: RRR no m/r/g. LUNGS: CTAB without wheezes or crackles. ABDOMEN: Soft, NT, ND. EXTREMITIES: No LE edema. NEURO: Awake and alert. Normal speech. Very slight left mouth droop otherwise CN II-XII intact. UE and LE strength 5/5 but LLE/LUE less in comparison to the right side. Diminished sensation over LLE and LUE. Sensation of face intact. PSYCH: Appropriate mood and affect. Urinary Catheter: No Vascular Central Line Catheter: No A/P Assessment and Plan 35 year old male with multiple sclerosis is admitted for MS flare. Patient follows with Dr. Newby who has been consulted. The plan is for three days of IV steroids. PT/OT consulted. Discharge Planning Anticipate discharge after three full days of IV steroids BID, maybe tomorrow. Problem List: (1) Multiple sclerosis Status: Acute Plan: Patient admitted for acute flare of MS. Head CT shows a persistent stable hypodensity in the right centrum semiovale and CT of C-spine normal. - Neuro consulted; appreciate recommendations - Solumedrol 500 mg IV BID for a total of three days (first dose given evening of 09/08. Course to be complete on 3/6 after AM dose) - Continue home Aubagio (patient has it with him) - Neuro checks - PT/OT/ST -he has ativan 2 mg iv prior to the steroids as he reports these high doses make him very anxious and it's working well (2) Headache Status: Chronic Plan: Patient with history of headaches and success with Imitrex. - CT head with no acute process - Imitrex and Tylenol PRN added torodal to see if that will help as it did in the past. his renal fxn is good (3) Anxiety Status: Acute Plan: On review of EMR, patient's PCP had changed home Xanax to Klonopin 1 mg BID PRN which can be continued. - Continue home Trazodone -added 2 mg ativan iv prior to steroids as high dose steroids are known to cause all kinds of problems mentally, psychologically and physically but they are needed for his MS right now (4) Nutrition, metabolism, and development symptoms Status: Acute Plan: - Fluids: Tolerating PO - Electrolytes: WNL - Nutrition: Regular diet - DVT prophylaxis: Lovenox 40 mg SQ daily - GI prophylaxis: Protonix 40 mg daily since receiving high-dose steroids Karly Geller MD Sep 10, 2016 10:20
[2016-09-10] MEDS ORDERED: KETOROLAC TROMETHAMINE 10 MG TAB PO PRN (10:30)
[2016-09-10 11:20] VITALS: BP 161/80; PULSE 87; RESP 18; TEMP 97.1; O2SAT 99
--- NOTE | 2016-09-10 11:33 | HHI.PR ---
Review/Management Diagnosis Multiple sclerosis exacerbation Plan continue solumedrol total of 3-5 days depending on response. Diagnosis/Plan: Subjective Subjective Comments No acute events reported Day 2 solumedrol and tolerating it well He feels left sided strength is improving but is still weak Active Medications Current Medications Medications (Trade) Dose Ordered Sig/Memo Route Start Time Stop Time Status Last Admin (NS Flush) 2 ml UNSCH PRN FLUSH 09/08/16 22:00 (NS Flush) 2 ml BID FLUSH 09/08/16 22:00 09/10/16 10:09 (Tylenol) 650 mg Q4H PRN PO 09/08/16 22:00 (Zofran Inj) 4 mg Q6H PRN IVP 09/08/16 22:00 Naloxone HCl 0.4 mg 0.4 mg UNSCH PRN IV 09/08/16 22:00 (SoluMEDROL INJ/ D5W 100 ml Inj) 100 ml @ 200 mls/hr Q12HR IV 09/09/16 09:00 09/11/16 09:00 09/10/16 10:10 (Desyrel) 100 mg HS PRN PO 09/08/16 22:15 (Imitrex) 50 mg DAILY PRN PO 09/08/16 22:15 09/10/16 10:15 (Protonix) 40 mg DAILY PO 09/08/16 23:15 09/08/16 23:27 Patient Own Medication PT OWN MED: Teriflunomide (Aubagio)... DAILY PO 09/09/16 09:00 Hold (Vasotec Inj) 1.25 mg Q6H PRN IV 09/09/16 01:30 (Ativan Inj) 2 mg Q12HR IV PUSH 09/09/16 21:00 09/10/16 10:10 (Milk Of Magnesia Liq) 30 ml DAILY PRN PO 09/09/16 17:30 (Toradol) 10 mg ONCE PRN PO 09/10/16 10:30 09/10/16 23:00 (KlonoPIN) 1 mg Q12HR PO 09/10/16 11:15 Allergies Allergies Coded Allergies Erythromycin (Verified Allergy, Severe, VOMIT, 09/08/16) Lortab (Verified Allergy, Severe, Nausea/Vomiting, 09/08/16) Penicillin (Verified Allergy, Severe, vomiting, 09/08/16) Amoxicillin (Verified Adverse Reaction, Severe, Nausea/Vomiting, 09/08/16) Review of Systems All other ROS: ROS reviewed as documented in chart Exam I&O / VS 09/09/16 09/09/16 09/10/16 15:00 23:00 07:00 Intake Total 960 ml 720 ml 480 ml Balance 960 ml 720 ml 480 ml Intake Oral 960 ml 720 ml 480 ml # Voids 3 3 2 # Bowel Movements 1 0 0 Vital Signs Date Time Temp Pulse Resp B/P Pulse Ox O2 Delivery O2 Flow Rate FiO2 09/10/16 08:22 96.1 91 18 136/85 98 09/10/16 00:11 96.9 86 22 134/84 97 09/09/16 20:14 97.9 94 21 140/83 98 09/09/16 15:45 97.5 82 17 160/89 97 09/09/16 11:45 97.4 71 17 156/77 98 General: Alert and Oriented, No acute distress Eye: EOMI Respiratory: Non-labored respirations Cardiology: Normal rate Neurologic: Alert, Oriented Psychiatric: Cooperative, Appropriate mood & affect, Normal judgement, Non- suicidal Exam Comments alert, oriented, speech is normal CN 2-12 normal MOTOR--/5 LUE and SEANE 11/10 Jarett Bailey PhD Sep 10, 2016 11:33
[2016-09-10] MEDS: clonazePAM 1 MG TAB PO SCH ×2 (11:41→21:11)
[2016-09-10 16:15] VITALS: BP 139/77; PULSE 95; RESP 18; TEMP 97.8; O2SAT 96
[2016-09-10 20:45] VITALS: BP 146/75; PULSE 95; RESP 16; TEMP 97.2; O2SAT 98
[2016-09-10] MEDS ORDERED: KETOROLAC TROMETHAMINE 60 MG/2 ML (IM) VIAL IM ONE (22:30)
[2016-09-10] MEDS: traZODone HCL 100 MG TAB PO PRN (22:41)
[2016-09-11] VITALS: BP 126/88; PULSE 84; RESP 16; TEMP 96.1; O2SAT 94
[2016-09-11 07:35] VITALS: BP 133/67; PULSE 87; RESP 18; TEMP 96.3; O2SAT 97
--- NOTE | 2016-09-11 08:48 | HHI.FPPN ---
Subjective Remarks Pt seen and examined this morning. AFVSS. No acute events overnight. Reports symptoms of numbness/tingling and weakness in the LLE and LLU are about the same as yesterday. Denies slurred speech, blurry vision, or facial drooping. Continues to endorse a 5/10 right-sided, throbbing headache. He states the Toradol yesterday evening helped and the Imitrex doesn't seem to be working as well any more. He is ambulating without issues. Would like to see how another day on the IV steroids would make him feel. (Nikky Pleitez MD) Objective Vitals Vital Signs Date Time Temp Pulse Resp B/P Pulse Ox O2 Delivery O2 Flow Rate FiO2 09/11/16 00:00 96.1 84 16 126/88 94 09/10/16 20:45 97.2 95 16 146/75 98 09/10/16 16:15 97.8 95 18 139/77 96 09/10/16 11:20 97.1 87 18 161/80 99 I/O 09/10/16 09/10/16 09/10/16 09/11/16 09/11/16 09/11/16 07:00 15:00 23:00 07:00 15:00 23:00 Intake Total 480 ml 960 ml 480 ml 480 ml Balance 480 ml 960 ml 480 ml 480 ml Intake Oral 480 ml 960 ml 480 ml 480 ml # Voids 2 4 2 3 # Bowel Movements 0 2 0 0 (Nikky Pleitez MD) Result Diagram: 09/09/1625 09/09/16 0625 Objective Remarks GENERAL: WN, WD male sitting up comfortably in bed, pleasant and cooperative, in NAD. SKIN: Warm and dry. HEENT: PERRLA. EOMI. MMM. HEART: RRR no m/r/g. LUNGS: CTAB without wheezes or crackles. ABDOMEN: Soft, NT, ND. EXTREMITIES: No LE edema. NEURO: Awake and alert. Normal speech. CN II-XII intact. RUE and RLE strength 5/ 5. LLE/LUE strength 4+/5. Diminished sensation over LLE and LUE. Sensation of face intact. PSYCH: Appropriate mood and affect. (Nikky Pleitez MD) A/P Assessment and Plan 35 year old male with multiple sclerosis is admitted for MS flare. Patient follows with Dr. Newby who has been consulted. The plan is for 3-5 days of IV steroids pending clinical response; today he has completed three day but isn't satisfied with the outcome so we will see how he does with another day. PT/OT consulted. Discharge Planning Anticipate D/C in 1-2 days pending clinical response of steroids. (Nikky Pleitez MD) Attending Attestation Patient seen and examined. Case reviewed and discussed with the resident team. Agree with plan of care as discussed with me and documented in the resident note. (Karly Geller MD) Problem List: (1) Multiple sclerosis Status: Acute Plan: Patient admitted for acute flare of MS. Head CT shows a persistent stable hypodensity in the right centrum semiovale and CT of C-spine normal. MRI with stable periventricular and subcortical areas of white matter signal change and no acute findings. Neuro consulted; recommending IV steroids 3-5 days depending on response. As of this morning, he will have had three full days of Solumedrol 500 mg IV BID without significant improvement in his symptoms therefore we will see how he does another day. - Ativan 2 mg IV prior to the steroids as he reports these high doses make him very anxious and it's working well - Continue home Aubagio (patient has it with him) - Neuro checks - PT/OT/ST (2) Headache Status: Chronic Plan: Patient with history of migraine headaches that flare when MS flares. - CT head with no acute process - Imitrex and Tylenol PRN - Toradol 30 mg IV Q6H PRN (3) Anxiety Status: Chronic Plan: On review of EMR, patient's PCP had changed home Xanax to Klonopin 1 mg BID PRN which can be continued. - Continue home Trazodone - Added 2 mg Ativan IV prior to steroids as high dose steroids can cause psychologic distress but they are needed for his MS right now (4) Nutrition, metabolism, and development symptoms Status: Acute Plan: - Fluids: Tolerating PO - Electrolytes: WNL - Nutrition: Regular diet - DVT prophylaxis: Ambulating - GI prophylaxis: Protonix 40 mg daily since receiving high-dose steroids dw Dr. Gelelr (Nikky Pleitez MD) Nikky Pleitez MD Sep 11, 2016 08:48 Karly Geller MD Sep 16, 2016 13:45
[2016-09-11] MEDS: PANTOPRAZOLE SOD 40 MG DELAYED RELEASE TAB PO SCH (09:00)
[2016-09-11] MEDS: methylPREDNISolone SO SUCC INJ 500 MG in DEXTROSE 5% IN WATER 100ML INJ 100 ML IV SCH ×4 (09:00→20:17)
[2016-09-11] MEDS: KETOROLAC TROMETHAMINE 30 MG/ML (IVP) VIAL IV PUSH PRN ×2 (09:21→22:12)
[2016-09-11] MEDS: clonazePAM 1 MG TAB PO SCH ×2 (09:21→20:15)
[2016-09-11] MEDS: LORazepam 2 MG/ML VIAL IV PUSH SCH ×2 (09:21→20:15)
[2016-09-11] MEDS: SODIUM CHLORIDE 0.9% FLUSH 5 ML FLUSH FLUSH SCH ×2 (09:22→20:17)
[2016-09-11 11:30] VITALS: BP 127/72; PULSE 94; RESP 18; TEMP 96.2; O2SAT 97
[2016-09-11 15:40] VITALS: BP 131/73; PULSE 89; RESP 18; TEMP 95.3; O2SAT 99
--- NOTE | 2016-09-11 18:35 | HHI.PR ---
Review/Management Diagnosis Multiple sclerosis exacerbation Plan continue solumedrol total of 3-5 days depending on response. Diagnosis/Plan: Subjective Subjective Comments No acute events reported tolerating iv solumedrol He feels left sided strength is improving but not yet to baseline Active Medications Current Medications Medications (Trade) Dose Ordered Sig/Memo Route Start Time Stop Time Status Last Admin (NS Flush) 2 ml UNSCH PRN FLUSH 09/08/16 22:00 (NS Flush) 2 ml BID FLUSH 09/08/16 22:00 09/11/16 09:22 (Tylenol) 650 mg Q4H PRN PO 09/08/16 22:00 (Zofran Inj) 4 mg Q6H PRN IVP 09/08/16 22:00 (Narcan Inj) 0.4 mg UNSCH PRN IV 09/08/16 22:00 (Desyrel) 100 mg HS PRN PO 09/08/16 22:15 09/10/16 22:41 (Imitrex) 50 mg DAILY PRN PO 09/08/16 22:15 09/10/16 10:15 (Protonix) 40 mg DAILY PO 09/08/16 23:15 09/08/16 23:27 Patient Own Medication PT OWN MED: Teriflunomide (Aubagio)... DAILY PO 09/09/16 09:00 Hold (Vasotec Inj) 1.25 mg Q6H PRN IV 09/09/16 01:30 (Ativan Inj) 2 mg Q12HR IV PUSH 09/09/16 21:00 09/11/16 09:21 (Milk Of Magnesia Liq) 30 ml DAILY PRN PO 09/09/16 17:30 (KlonoPIN) 1 mg Q12HR PO 09/10/16 11:15 09/11/16 09:21 Ketorolac Tromethamine 30 mg 30 mg Q6H PRN IV PUSH 09/11/16 08:45 09/16/16 08:44 09/11/16 09:21 (SoluMEDROL INJ/ D5W 100 ml Inj) 100 ml @ 200 mls/hr Q12HR IV 09/11/16 21:00 Allergies Allergies Coded Allergies Erythromycin (Verified Allergy, Severe, VOMIT, 09/08/16) Lortab (Verified Allergy, Severe, Nausea/Vomiting, 09/08/16) Penicillin (Verified Allergy, Severe, vomiting, 09/08/16) Amoxicillin (Verified Adverse Reaction, Severe, Nausea/Vomiting, 09/08/16) Review of Systems All other ROS: ROS reviewed as documented in chart Exam I&O / VS 09/10/16 09/10/16 09/11/16 15:00 23:00 07:00 Intake Total 960 ml 480 ml Balance 960 ml 480 ml Intake Oral 960 ml 480 ml # Voids 4 2 # Bowel Movements 2 0 Vital Signs Date Time Temp Pulse Resp B/P Pulse Ox O2 Delivery O2 Flow Rate FiO2 09/11/16 07:35 96.3 87 18 133/67 97 09/11/16 00:00 96.1 84 16 126/88 94 09/10/16 20:45 97.2 95 16 146/75 98 General: Alert and Oriented, No acute distress Eye: EOMI Respiratory: Non-labored respirations Cardiology: Normal rate Neurologic: Alert, Oriented Psychiatric: Cooperative, Appropriate mood & affect, Normal judgement, Non- suicidal Exam Comments alert, oriented, speech is normal CN 2-12 normal MOTOR--/5 LUE and LLE 11/10 RINA and Jarett Hurd PhD Sep 11, 2016 18:34
[2016-09-11 20:00] VITALS: BP 148/78; PULSE 86; RESP 16; TEMP 96.7; O2SAT 98
[2016-09-11] MEDS: traZODone HCL 100 MG TAB PO PRN (23:09)
[2016-09-11] MEDS: SUMAtriptan SUCCINATE 50 MG TAB PO PRN (23:11)
[2016-09-12] VITALS: BP 124/63; PULSE 94; RESP 17; TEMP 96.8; O2SAT 97
[2016-09-12 04:00] VITALS: BP 136/63; PULSE 69; RESP 16; TEMP 96.5; O2SAT 98
[2016-09-12 08:00] VITALS: BP 140/80; PULSE 77; RESP 18; TEMP 96.3; O2SAT 98
--- NOTE | 2016-09-12 09:08 | HHI.FPPN ---
Subjective Remarks Pt seen and examined this AM. AFVSS. No acute events overnight. Reports left UE/ LE strength is same as yesterday. Feels like his voice is "froggy" today. Denies blurry vision or slurred speech. Tolerating PO and ambulating. Wants to see how one more day of steroids will do since he is not quite yet back to his baseline. Also reports that he is feeling depressed today but denies suicidal ideations. States he tried Wellbutrin which didn't seem to help. Reports at home he typically does not feel this way. Also complaining of 5/10 right-sided throbbing headache; Toradol helps alleviate the pain to a 2 but then it returns. He reports at home he usually just waits out his headaches. Has never tried Fioricet. (Nikky Pleitez MD) Objective Vitals Vital Signs Date Time Temp Pulse Resp B/P Pulse Ox O2 Delivery O2 Flow Rate FiO2 09/12/16 08:00 96.3 77 18 140/80 98 09/12/16 07:15 Room Air 09/12/16 04:00 96.5 69 16 136/63 98 09/12/16 00:00 96.8 94 17 124/63 97 09/11/16 20:00 96.7 86 16 148/78 98 09/11/16 15:40 95.3 89 18 131/73 99 09/11/16 11:30 96.2 94 18 127/72 97 I/O 09/11/16 09/11/16 09/11/16 09/12/16 09/12/16 09/12/16 07:00 15:00 23:00 07:00 15:00 23:00 Intake Total 1680 ml 360 ml 240 ml Balance 1680 ml 360 ml 240 ml Intake Oral 1680 ml 360 ml 240 ml # Voids 6 2 2 # Bowel Movements 2 1 0 (Nikky Pleitez MD) Result Diagram: 09/09/1662409/09/16624 Objective Remarks GENERAL: WN, WD male sitting up comfortably in bed, pleasant and cooperative, in NAD. SKIN: Warm and dry. HEENT: PERRLA. EOMI. MMM. HEART: RRR no m/r/g. LUNGS: CTAB without wheezes or crackles. ABDOMEN: Soft, NT, ND. EXTREMITIES: No LE edema. NEURO: Awake and alert. Normal speech. CN II-XII intact. RUE and RLE strength 5/ 5. LLE/LUE strength 4+/5 but seems improved from yesterday's exam. Diminished sensation over LLE and LUE. Sensation of face intact. PSYCH: Appropriate mood and affect. (Nikky Pleitez MD) A/P Assessment and Plan 35 year old male with multiple sclerosis is admitted for MS flare. Patient follows with Dr. Newby who has been consulted. The plan is for 3-5 days of IV steroids pending clinical response; today he has completed four days but doesnt' feel like he is back to his baseline so we will see how he does with another day. Discharge Planning Anticipate D/C tomorrow. (Nikky Pleitez MD) Attending Attestation Patient seen and examined. Case reviewed and discussed with the resident team. Agree with plan of care as discussed with me and documented in the resident note. (Karly Geller MD) Problem List: (1) Multiple sclerosis Status: Acute Plan: Patient admitted for acute flare of MS. Head CT shows a persistent stable hypodensity in the right centrum semiovale and CT of C-spine normal. MRI with stable periventricular and subcortical areas of white matter signal change and no acute findings. Neuro consulted; recommending IV steroids 3-5 days depending on response. As of this morning, he will have had four full days of Solumedrol 500 mg IV BID but he is not quite yet to his baseline therefore we will see how he does another day. - Ativan 2 mg IV prior to the steroids as he reports these high doses make him very anxious and it's working well - Continue home Aubagio (patient has it with him) - Neuro checks - PT/OT/ST (2) Headache Status: Chronic Plan: Patient with history of migraine headaches that flare when MS flares. - CT head with no acute process - Tylenol PRN - Toradol 30 mg IV Q6H PRN - Fioricet PRN - D/C Imitrex since not helping and he can't afford it at home (3) Anxiety Status: Chronic Plan: On review of EMR, patient's PCP had changed home Xanax to Klonopin 1 mg BID PRN which can be continued. - Continue home Trazodone - Added 2 mg Ativan IV prior to steroids as high dose steroids can cause psychologic distress but they are needed for his MS right now (4) Depression Status: Chronic Plan: May be related to current hospitalization but patient reports he has been tried on Wellbutrin in the past with minimal improvement. Psychiatry evaluated him yesterday and the patient reports they would speak to Dr. Newby about starting a new medication; will await documentation/recommendations. (5) Nutrition, metabolism, and development symptoms Status: Acute Plan: - Fluids: Tolerating PO - Electrolytes: WNL - Nutrition: Regular diet - DVT prophylaxis: Ambulating - GI prophylaxis: Protonix 40 mg daily since receiving high-dose steroids dw Dr. Geller (Nikky Pleitez MD) Nikky Pleitez MD Sep 12, 2016 09:07 Karly Geller MD Sep 16, 2016 13:46
[2016-09-12] MEDS: PANTOPRAZOLE SOD 40 MG DELAYED RELEASE TAB PO SCH (09:30)
[2016-09-12] MEDS: clonazePAM 1 MG TAB PO SCH ×2 (09:32→23:08)
[2016-09-12] MEDS: SODIUM CHLORIDE 0.9% FLUSH 5 ML FLUSH FLUSH SCH ×2 (09:32→21:15)
[2016-09-12] MEDS: LORazepam 2 MG/ML VIAL IV PUSH SCH ×2 (09:33→21:15)
[2016-09-12] MEDS: methylPREDNISolone SO SUCC INJ 500 MG in DEXTROSE 5% IN WATER 100ML INJ 100 ML IV SCH ×4 (10:10→21:16)
[2016-09-12] MEDS: KETOROLAC TROMETHAMINE 30 MG/ML (IVP) VIAL IV PUSH PRN ×2 (10:16→21:18)
[2016-09-12] MEDS: FLUTICASONE PROPIONATE 50 MCG/ACT 16 GM NASAL SPRAY NASAL SCH (10:30)
[2016-09-12] MEDS: ACETAMIN 325 MG/BUTALBITAL 50 MG/CAFFEINE 40 MG TAB PO PRN ×2 (10:33→18:10)
[2016-09-12 12:00] VITALS: BP 145/88; PULSE 77; RESP 18; TEMP 96.2; O2SAT 97
[2016-09-12 16:29] VITALS: BP 147/92; PULSE 115; RESP 20; TEMP 98.5; O2SAT 97
[2016-09-12 19:23] VITALS: BP 132/82; PULSE 107; RESP 18; TEMP 98.3; O2SAT 99
--- NOTE | 2016-09-12 20:40 | HHI.PR ---
Review/Management Diagnosis Multiple sclerosis exacerbation Plan continue solumedrol total 5 days--last treatment tomorrow then stop after 5 days. ANticipate d/c home tomorrow or Diagnosis/Plan: Subjective Subjective Comments No acute events reported He states left side still weak but improving Active Medications Current Medications Medications (Trade) Dose Ordered Sig/Memo Route Start Time Stop Time Status Last Admin (NS Flush) 2 ml UNSCH PRN FLUSH 09/08/16 22:00 (NS Flush) 2 ml BID FLUSH 09/08/16 22:00 09/12/16 09:32 (Tylenol) 650 mg Q4H PRN PO 09/08/16 22:00 (Zofran Inj) 4 mg Q6H PRN IVP 09/08/16 22:00 (Narcan Inj) 0.4 mg UNSCH PRN IV 09/08/16 22:00 (Desyrel) 100 mg HS PRN PO 09/08/16 22:15 09/11/16 23:09 (Protonix) 40 mg DAILY PO 09/08/16 23:15 09/08/16 23:27 Patient Own Medication PT OWN MED: Teriflunomide (Aubagio)... DAILY PO 09/09/16 09:00 Hold (Vasotec Inj) 1.25 mg Q6H PRN IV 09/09/16 01:30 (Ativan Inj) 2 mg Q12HR IV PUSH 09/09/16 21:00 09/12/16 09:33 (Milk Of Magnesia Liq) 30 ml DAILY PRN PO 09/09/16 17:30 (KlonoPIN) 1 mg Q12HR PO 09/10/16 11:15 09/12/16 09:32 Ketorolac Tromethamine 30 mg 30 mg Q6H PRN IV PUSH 09/11/16 08:45 09/16/16 08:44 09/12/16 10:16 (SoluMEDROL INJ/ D5W 100 ml Inj) 100 ml @ 200 mls/hr Q12HR IV 09/11/16 21:00 09/12/16 10:10 (Fioricet 325-50-40) 1 tab Q6H PRN PO 09/12/16 09:15 09/12/16 18:10 (Flonase Kye Spr) 2 spray DAILY NASAL 09/12/16 10:30 09/12/16 10:30 Allergies Allergies Coded Allergies Erythromycin (Verified Allergy, Severe, VOMIT, 09/08/16) Lortab (Verified Allergy, Severe, Nausea/Vomiting, 09/08/16) Penicillin (Verified Allergy, Severe, vomiting, 09/08/16) Amoxicillin (Verified Adverse Reaction, Severe, Nausea/Vomiting, 09/08/16) Review of Systems All other ROS: ROS reviewed as documented in chart Exam I&O / VS 09/11/16 09/11/16 09/12/16 15:00 23:00 07:00 Intake Total 1680 ml 360 ml 240 ml Balance 1680 ml 360 ml 240 ml Intake Oral 1680 ml 360 ml 240 ml # Voids 6 2 2 # Bowel Movements 2 1 0 Vital Signs Date Time Temp Pulse Resp B/P Pulse Ox O2 Delivery O2 Flow Rate FiO2 09/12/16 19:23 98.3 107 18 132/82 99 09/12/16 19:12 Room Air 09/12/16 16:29 98.5 115 20 147/92 97 09/12/16 12:00 96.2 77 18 145/88 97 09/12/16 08:00 96.3 77 18 140/80 98 09/12/16 07:15 Room Air 09/12/16 04:00 96.5 69 16 136/63 98 09/12/16 00:00 96.8 94 17 124/63 97 General: Alert and Oriented, No acute distress Eye: EOMI Respiratory: Non-labored respirations Cardiology: Normal rate Neurologic: Alert, Oriented Psychiatric: Cooperative, Appropriate mood & affect, Normal judgement, Non- suicidal Exam Comments alert, oriented, speech is normal CN 2-12 normal MOTOR--4/5 LUE and LLE 5/5 RINA and Jarett Hurd PhD Sep 12, 2016 20:40
[2016-09-12] MEDS: traZODone HCL 100 MG TAB PO PRN (23:08)
[2016-09-13] VITALS: BP 120/61; PULSE 81; RESP 16; TEMP 96.7; O2SAT 97
[2016-09-13 08:00] VITALS: BP 147/82; PULSE 71; RESP 18; TEMP 95.4; O2SAT 95
[2016-09-13] MEDS: SODIUM CHLORIDE 0.9% FLUSH 5 ML FLUSH FLUSH SCH (08:26)
[2016-09-13] MEDS: PANTOPRAZOLE SOD 40 MG DELAYED RELEASE TAB PO SCH (08:27)
[2016-09-13] MEDS: KETOROLAC TROMETHAMINE 30 MG/ML (IVP) VIAL IV PUSH PRN (08:27)
[2016-09-13] MEDS: FLUTICASONE PROPIONATE 50 MCG/ACT 16 GM NASAL SPRAY NASAL SCH (09:00)
[2016-09-13] MEDS: methylPREDNISolone SO SUCC INJ 500 MG in DEXTROSE 5% IN WATER 100ML INJ 100 ML IV SCH ×2 (09:25)
[2016-09-13] MEDS: clonazePAM 1 MG TAB PO SCH (09:26)
[2016-09-13] MEDS: LORazepam 2 MG/ML VIAL IV PUSH SCH (09:26)
--- NOTE | 2016-09-13 09:32 | HHI.FPPN ---
Subjective Remarks Pt seen and examined this morning. AFVSS. No acute events overnight. Reports strength has improved in LLE and LUE. Still endorsing tingling of left-sided extremities but that seems to be better too. Concerned about his voice and feels like the left side of his vocal cords feel weak. Denies blurry or double vision. Ambulating and tolerating a diet. Feels down because he is scared his MS is progressing. He has looked into MS Groups in the past but states that he is always busy with work and family. Realizes that he should try and make an effort to go to group meetings. Continues to complain of left-sided migraine; Fioricet didn't help. Toradol is helping. (Nikky Pleitez MD) Objective Vitals Vital Signs Date Time Temp Pulse Resp B/P Pulse Ox O2 Delivery O2 Flow Rate FiO2 09/13/16 07:19 Room Air 09/13/16 00:00 96.7 81 16 120/61 97 09/12/16 19:23 98.3 107 18 132/82 99 09/12/16 19:12 Room Air 09/12/16 16:29 98.5 115 20 147/92 97 09/12/16 12:00 96.2 77 18 145/88 97 I/O 09/12/16 09/12/16 09/12/16 09/13/16 09/13/16 09/13/16 07:00 15:00 23:00 07:00 15:00 23:00 Intake Total 240 ml 1200 ml 360 ml 240 ml Balance 240 ml 1200 ml 360 ml 240 ml Intake Oral 240 ml 1200 ml 360 ml 240 ml # Voids 2 3 2 2 # Bowel Movements 0 2 1 0 (Nikky Pleitez MD) Result Diagram: 09/09/1625 09/09/16 0625 Objective Remarks GENERAL: WN, WD male sitting up comfortably in chair, pleasant and cooperative, in NAD. SKIN: Warm and dry. HEENT: PERRLA. EOMI. MMM. HEART: RRR no m/r/g. LUNGS: CTAB without wheezes or crackles. ABDOMEN: Soft, NT, ND. EXTREMITIES: No LE edema. NEURO: Awake and alert. Normal speech. RUE and RLE strength 5/5. LLE/LUE strength 4+/5 but improved from prior exams. Diminished sensation over LLE and LUE. Sensation of face intact. PSYCH: Appropriate mood and affect. (Nikky Pleitez MD) A/P Assessment and Plan 35 year old male with multiple sclerosis is admitted for MS flare. Patient follows with Dr. Newby who has been consulted. The plan is for 3-5 days of IV steroids pending clinical response; today he has completed five days. Discharge Planning Anticipate D/C later today after this morning's dose of steroids. (Nikky Pleitez MD) Attending Attestation Patient seen and examined. Case reviewed and discussed with the resident team. Agree with plan of care as discussed with me and documented in the resident note. unfortunately, MS effects people physically and mentally. discussed with him that it is scary that things can get worse and he can consider counselling and can talk to his primary (Karly Geller MD) Problem List: (1) Multiple sclerosis Status: Acute Plan: Patient admitted for acute flare of MS. Head CT shows a persistent stable hypodensity in the right centrum semiovale and CT of C-spine normal. MRI with stable periventricular and subcortical areas of white matter signal change and no acute findings. Neuro consulted; recommending IV steroids 3-5 days depending on response. As of this morning, he will have had five full days of Solumedrol 500 mg IV BID. He is concerned since he hasn't made full recovery of his strength and sensation. - Ativan 2 mg IV prior to the steroids as he reports these high doses make him very anxious and it's working well - Continue home Aubagio (patient has it with him) - Neuro checks - PT/OT/ST (2) Headache Status: Chronic Plan: Patient with history of migraine headaches that flare when MS flares. - CT head with no acute process - Tylenol PRN - Toradol 30 mg IV Q6H PRN - Can't afford Imitrex at home and Fioricet doesn't help (3) Anxiety Status: Chronic Plan: On review of EMR, patient's PCP had changed home Xanax to Klonopin 1 mg BID PRN which can be continued. - Continue home Trazodone - Added 2 mg Ativan IV prior to steroids as high dose steroids can cause psychologic distress but they are needed for his MS right now (4) Depression Status: Chronic Plan: May be related to current hospitalization but patient reports he has been tried on Wellbutrin in the past with minimal improvement. Encouraged him to get involved in MS Groups. (5) Nutrition, metabolism, and development symptoms Status: Acute Plan: - Fluids: Tolerating PO - Electrolytes: WNL - Nutrition: Regular diet - DVT prophylaxis: Ambulating - GI prophylaxis: Protonix 40 mg daily since receiving high-dose steroids dw Dr. Geller (Nikky Pleitez MD) Nikky Pleitez MD Sep 13, 2016 09:32 Karly Geller MD Sep 16, 2016 13:51
[2016-09-13] MEDS ORDERED: CLON1TAB PO ×2 (10:13→10:14)
[2016-09-13] MEDS ORDERED: TRAZ100T4 PO (10:13)
[2016-09-13] MEDS ORDERED: KETO10 PO (10:14)
--- NOTE | 2016-09-13 10:15 | HHI.DCPOC ---
Discharge Care Plan Diagnosis: (1) Multiple sclerosis (2) Depression (3) Anxiety (4) Headache Goals to Promote Your Health * To prevent worsening of your condition and complications * To maintain your health at the optimal level Directions to Meet Your Goals Take your medications as prescribed Follow your dietary instruction Follow activity as directed Keep your appointments as scheduled Take your immunizations and boosters as scheduled If your symptoms worsen call your PCP, if no PCP go to Urgent Care Center or Emergency Room Smoking is Dangerous to Your Health. Avoid second hand smoke Call the 24-hour hour crisis hotline for domestic abuse at Nikky Pleitez MD Sep 13, 2016 10:15
[2016-09-13 12:00] VITALS: BP 151/63; PULSE 71; RESP 18; TEMP 97.3; O2SAT 100
[2016-09-22] MEDS ORDERED: CLON1TAB PO (11:57)
[2016-09-22] MEDS ORDERED: AZO-95TA2 PO ×2 (11:57→11:58)
[2016-09-22] MEDS ORDERED: FLUO40CA PO (12:01)
[2016-10-17] MEDS ORDERED: CLON1TAB PO (09:24)
--- NOTE | 2016-12-19 19:59 | HHI.DS ---
Discharge Summary Admission Date Sep 08, 2016 at 20:41 Discharge Date: Sep 13, 2016 Admitting Diagnosis MS flare (1) Multiple sclerosis Diagnosis: Principal Plan: Patient admitted for acute flare of MS. Head CT shows a persistent stable hypodensity in the right centrum semiovale and CT of C-spine normal. MRI with stable periventricular and subcortical areas of white matter signal change and no acute findings. Neuro consulted; recommending IV steroids 3-5 days depending on response. As of this morning, he will have had five full days of Solumedrol 500 mg IV BID. He is concerned since he hasn't made full recovery of his strength and sensation. - Ativan 2 mg IV prior to the steroids as he reports these high doses make him very anxious and it's working well - Continue home Aubagio (patient has it with him) - Neuro checks - PT/OT/ST (2) Headache Diagnosis: Secondary Plan: Patient with history of migraine headaches that flare when MS flares. - CT head with no acute process - Tylenol PRN - Toradol 30 mg IV Q6H PRN - Can't afford Imitrex at home and Fioricet doesn't help (3) Anxiety Diagnosis: Secondary Plan: On review of EMR, patient's PCP had changed home Xanax to Klonopin 1 mg BID PRN which can be continued. - Continue home Trazodone - Added 2 mg Ativan IV prior to steroids as high dose steroids can cause psychologic distress but they are needed for his MS right now (4) Depression Diagnosis: Secondary Plan: May be related to current hospitalization but patient reports he has been tried on Wellbutrin in the past with minimal improvement. Encouraged him to get involved in MS Groups. (5) Nutrition, metabolism, and development symptoms Diagnosis: Secondary Plan: - Fluids: Tolerating PO - Electrolytes: WNL - Nutrition: Regular diet - DVT prophylaxis: Ambulating - GI prophylaxis: Protonix 40 mg daily since receiving high-dose steroids [facility] Brief History 35 year old male with PMH of MS diagnosed in 2006 presents to ED for evaluation of MS exacerbation. He states he has been having left-sided facial droop, drooling, and left-sided arm and leg weakness. He states this is a typical flare -up of MS for him. He has had these same symptoms in the past and recently admitted here at [facility] in 05/2016. He states he has had a headache that is about a 5/10 for the past week and a half, not in any particular area, not associated with photophobia or phonophobia. Denies N/V. His left-sided weakness started to worsen this past Sunday requiring him to hold onto the brooke due to an unsteady gait. He states he is still able to bear weight on his left leg. His strength has slightly improved since several days ago. His speech is slightly slurred. He denies any other focal neurological deficit. Denies dysphagia. Denies any recent illnesses, fevers, chest pain, shortness of breath , no visual symptoms. He follows with Dr. Newby. PE at Discharge GENERAL: WN, WD male sitting up comfortably in chair, pleasant and cooperative, in NAD. SKIN: Warm and dry. HEENT: PERRLA. EOMI. MMM. HEART: RRR no m/r/g. LUNGS: CTAB without wheezes or crackles. ABDOMEN: Soft, NT, ND. EXTREMITIES: No LE edema. NEURO: Awake and alert. Normal speech. RUE and RLE strength 5/5. LLE/LUE strength 4+/5 but improved from prior exams. Diminished sensation over LLE and LUE. Sensation of face intact. PSYCH: Appropriate mood and affect. Hospital Course The patient was given 5 days of Solu-Medrol 500 mg IV BID while inpatient. The patient also continued his home Aubagio. His strength in his LLE and LUE improved from admission. Patient worked with PT/OT/ST. Patient was able to ambulate independently and PT recommended patient stable to be discharged home with no PT recommended. Pt Condition on Discharge: Stable Discharge Disposition: Discharge Home Discharge Instructions DIET: Follow Instructions for: As Tolerated, No Restrictions Activities you can perform: Regular-No Restrictions Activities to Avoid: Contact Sports, Prolonged Standing, Strenuous Activity, Driving Follow up Referrals: Neurology - 1 Week with Derian Newby MD Physician - 1 Week with Daysi Duong MD Continued Medications: Teriflunomide (Aubagio) 14 Mg Tab 14 MG PO DAILY Multiple sclerosis #30 Ref 0 TAB Rashawn Chacon MD R1 Dec 19, 2016 19:58
== END 2016-09-13 13:46 | disposition home or self-care (01) | DRG 60 ==
LOC: NETRI 16:03 → NEDA 20:41 → N06A 23:26
PROVIDERS: ADMIT Family Medicine; ATTEND Family Medicine
DX: G35 Multiple sclerosis (principal); F32.9 Major depressive disorder, single episode, unspecified; F41.9 Anxiety disorder, unspecified; F12.90 Cannabis use, unspecified, uncomplicated; R29.810 Facial weakness; R47.81 Slurred speech; Z85.47 Personal history of malignant neoplasm of testis; Z88.3 Allergy status to other anti-infective agents; Z88.0 Allergy status to penicillin; Z88.8 Allergy status to other drugs, medicaments and biological substances; Z87.891 Personal history of nicotine dependence; G43.909 Migraine, unspecified, not intractable, without status migrainosus
CPT/HCPCS: 70450; 70553; 72125; 80048; 85025; 85610; 85730; A9579; J1650; J1885; J2060; J2930